=== PATIENT | male | born 1980 | race Asian ===

== ENCOUNTER 2018-02-06 08:56 | Day surgery (SDC) | payer BC ==
[~2018-02-06] VITALS: Ht 193 cm; Wt 132.1 kg
[~2018-02-06 08:56] MED LIST: EPINEPHRINE 1 MG/ML, 1ML ONE; LIDOCAINE/PF 0.5% ,50ML ONE; LIDOCAINE/PF 1%, 30ML ONE; ROPIvacaine/PF 0.5%, 30 ML ONE
[2018-02-06] MEDS ORDERED: GABAPENTIN 300 MG CAPSULE PO ONE (09:30)
[2018-02-06] MEDS ORDERED: ACETAMINOPHEN 500 MG TABLET PO ONE (09:30)
[2018-02-06] MEDS ORDERED: ONDANSETRON ODT 8 MG PO ONE (09:30)
[2018-02-06 09:31] VITALS: BP 155/101
[2018-02-06] MEDS ORDERED: FENTANYL PF 100 MCG/2ML ONE (09:44)
[2018-02-06] MEDS ORDERED: MIDAZOLAM 1 MG/ML, 2ML ONE (09:44)
[2018-02-06] MEDS ORDERED: GABAPENTIN 300 MG CAPSULE ONE (09:56)
[2018-02-06] MEDS ORDERED: ONDANSETRON ODT 8 MG ONE (09:56)
[2018-02-06] MEDS ORDERED: ACETAMINOPHEN 500 MG TABLET ONE (09:57)
[2018-02-06] MEDS ORDERED: MEPERIDINE/PF 25MG/0.5ML IVPush PRN (10:00)
[2018-02-06] MEDS ORDERED: OXYcodone 5 MG/5 ML ORAL.SOL UDC PO PRN (10:00)
[2018-02-06] MEDS ORDERED: MIDAZOLAM 1 MG/ML, 2ML IV PRN (10:00)
[2018-02-06] MEDS ORDERED: HYDROmorphone 1 MG/ML, 1ML IV PRN (10:00)
[2018-02-06] MEDS ORDERED: DIAZEPAM 5 MG/ML, 2ML IVPush PRN (10:00)
[2018-02-06] MEDS ORDERED: ALBUTEROL/IPRATROPIUM 2.5MG/0.5MG, 3 ML NPPB PRN (10:00)
[2018-02-06] MEDS ORDERED: LABETALOL 5MG/ML, 20ML IV PRN (10:00)
[2018-02-06] MEDS ORDERED: PROMETHAZINE 25 MG/ML, 1ML IV PRN (10:00)
[2018-02-06] MEDS ORDERED: METOCLOPRAMIDE 5 MG/ML, 2ML IV PRN (10:00)
[2018-02-06] MEDS ORDERED: EPHEDRINE 50 MG/ML, 1ML IM PRN (10:00)
[2018-02-06] MEDS ORDERED: PROMETHAZINE 25 MG SUPP PR PRN (10:00)
[2018-02-06] MEDS ORDERED: FENTANYL PF 100 MCG/2ML IV PRN (10:00)
[2018-02-06] MEDS ORDERED: PLEASE ENTER HEIGHT AND WEIGHT MC SCH (10:00)
[2018-02-06] MEDS ORDERED: ONDANSETRON ODT 8 MG PO PRN (10:00)
[2018-02-06] MEDS ORDERED: MORPHINE SULFATE 4 MG/ML, 1ML IVPush PRN (10:00)
[2018-02-06] MEDS ORDERED: KETOROLAC 30 MG/1 ML ONE (10:03)
[2018-02-06] MEDS ORDERED: DEXAMETHASONE 4 MG/ML, 1ML ONE (10:20)
[2018-02-06] MEDS ORDERED: ONDANSETRON 2MG/ML, 2ML ONE (10:20)
[2018-02-06] MEDS ORDERED: CEFAZOLIN 1,000 MG ONE ×2 (10:20)
[2018-02-06] MEDS ORDERED: PROPOFOL 10 MG/ML, 20ML ONE (10:20)
== END 2018-02-06 13:00 ==
LOC: OUT 08:56
PROVIDERS: ATTEND Orthopaedic Surgery
DX: M65.861 Other synovitis and tenosynovitis, right lower leg (principal); S83.281A Other tear of lateral meniscus, current injury, right knee, initial encounter; X58.XXXA Exposure to other specified factors, initial encounter; Y93.89 Activity, other specified; Y92.89 Other specified places as the place of occurrence of the external cause; Y99.8 Other external cause status
CPT/HCPCS: 29881; J0171; J0690; J1100; J1885; J2250; J2405; J2704; J2795; J3010; J3490; Q0162; J2001